=== PATIENT | female | born 1960 | race Caucasian/White ===

== ENCOUNTER 2017-04-13 16:18 | Emergency (ER) | payer BC ==
[~2017-04-13] VITALS: Ht 160 cm; Wt 91.5 kg
[~2017-04-13 16:18] MED LIST: ACET1TAB40 PO; INSU100V19 SC; NOVOLOG; VIC
[2017-04-13 16:20] VITALS: Ht 160 cm; Wt 91.5 kg
[2017-04-13] MEDS ORDERED: IBUPROFEN 200 MG TAB PO ONE (17:00)
--- NOTE | 2017-04-13 18:24 | RADRPT ---
PROCEDURE: XR Left Ankle. CLINICAL INDICATION: Injury. Pain. TECHNIQUE: Three views of the left ankle were performed. COMPARISON: None. FINDINGS: There is lateral malleolar subcutaneous soft tissue swelling. There is no underlying fracture. Magnolia nt relationships are maintained. Ankle mortise is intact. Bone mineralization is within normal rolon its. There are plantar and posterior calcaneal bone spurs. IMPRESSION: Lateral malleolar subcutaneous soft tissue swelling without underlying fracture. Plantar and posteri or calcaneal bone spurs. RPTAT: HMVK .Terry Ledbetter MD, MD Date Time Electronically viewed and signed by .Terry Ledbetter MD, on 04/13/2017 18:24 .K/
[2017-04-13] MEDS ORDERED: HYDR-906 PO (18:44)
--- NOTE | 2017-04-13 18:46 | ERD ---
ER Documentation Chief Complaint Date/Time DATE: 04/13/17 TIME: 18:45 Chief Complaint left ankle pain s/p twisted ankle in yard yesterday HPI This 56-year-old female complains of left ankle pain after twisting or walking in her yard yesterday. She denies any weakness. She has difficulty ambulating due to pain. She has no bleeding or laceration. ROS All systems reviewed and are negative except as per history of present illness. Medications Home Meds Active Scripts Hydrocodone/Acetaminophen ([place] 5-325 Tablet) 1 Each Tablet, 1 TAB PO Q6H Y for PAIN, #12 TAB Prov:SG MARINELLI MD 04/13/17 Reported Medications Acetaminophen-Codeine* (Acetaminophen-Cod #3*) 1 Tab Tablet, PO Q8 05/15/12 Acetaminophen/Hydrocodone (Vicodin) 1 Tab Tab 05/15/12 Insulin Glargine,Hum.rec.anlog (Lantus) 100 U/Ml Vial, 15 U SC HS 05/14/12 [Novolog] No Conflict Check 05/14/12 Allergies Allergies: Coded Allergies: Temazepam (Verified Allergy, 05/15/12) ibuprofen (Verified Allergy, 05/15/12) Uncoded Allergies: ACCURPIL (Allergy, 05/14/12) PMhx/Soc History of Surgery: Yes (LAPAROSCOPY(REMOVAL OF FIBROIDS)) Anesthesia Reaction: No Hx Neurological Disorder: No Hx Respiratory Disorders: No Hx Cardiac Disorders: No Hx Psychiatric Problems: No Hx Miscellaneous Medical Probl: Yes (DM1, GRAVE'S DSE) Hx Alcohol Use: No Hx Substance Use: No Hx Tobacco Use: No Physical Exam Vitals Vital Signs Date Time Temp Pulse Resp B/P Pulse Ox O2 Delivery O2 Flow Rate FiO2 04/13/17 16:20 98.6 71 20 189/77 98 Physical Exam Const: [] Alert, [id number] per Head: Atraumatic Eyes: Normal Conjunctiva ENT: Normal External Ears, Nose and Mouth. Neck: Full range of motion..~ No meningismus. Resp: Clear to auscultation bilaterally Cardio: Regular rate and rhythm, no murmurs Abd: Soft, non tender, non distended. Normal bowel sounds Skin: No petechiae or rashes Back: No midline or flank tenderness Ext: No cyanosis, or edema. Tenderness and swelling around the left ankle joint and the lateral malleolus without appreciable deformities, restricted range of motion weakness. There is no bleeding or lacerations Neur: Awake and alert Psych: Normal Mood and Affect Results 24 hrs Current Medications Medications (Trade) Dose Ordered Sig/Jayy Route PRN Reason Start Time Stop Time Status Last Admin Dose Admin Ibuprofen (Motrin) 400 mg ONCE ONCE PO 04/13/17 17:00 04/13/17 17:01 DC 04/13/17 17:10 Procedures/MDM X-ray Ankle 3V Interpreted by me: Bones: [No fracture] Joints: No dislocation. 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 Patient is nervous intact after boot. Patient has signs and symptoms of left ankle sprain without evidence of fracture, dislocation, deficits or bacterial infection. She will treated with instructions for ice and elevation and orthopedic and PCP follow-up. She should return sooner for fevers, redness , new symptoms. She will be given a short course of [place] for pain. Departure Diagnosis: Primary Impression: Ankle pain Laterality: left Chronicity: acute Qualified Code: M25.572 - Acute left ankle pain Condition: Stable Patient Instructions: Sprain, Ankle, With X-Ray Referrals: VINCENZO AKINS MD, HRAIR E MD Additional Instructions: No fracture identified on x-ray. Ice and elevate at home. See primary doctor possible orthopedist for pain next week. Return sooner for fevers, redness, new symptoms. SG MARINELLI MD Apr 13, 2017 18:46
[2017-04-13 19:40] VITALS: BP 154/75; PULSE 77; RESP 18; TEMP 98.7
== END 2017-04-13 19:30 | disposition home or self-care (01) ==
LOC: FTE 16:18
DX: M25.572 Pain in left ankle and joints of left foot (principal); E10.9 Type 1 diabetes mellitus without complications; Z79.4 Long term (current) use of insulin
CPT/HCPCS: 73610